=== PATIENT | male | born 1980 | race African-American/Black ===

== ENCOUNTER 2016-06-16 10:43 | Emergency (ER) | payer MEDICAID, OTHER ==
[~2016-06-16] VITALS: Ht 185.4 cm; Wt 94.5 kg
[~2016-06-16 10:43] MED LIST: PROZAC
[2016-06-16 10:47] VITALS: BP 140/79
== END 2016-06-16 12:19 | disposition left against medical advice (07) ==
LOC: EEVIPCON 10:44 → EMS 10:44
DX: F41.9 Anxiety disorder, unspecified (principal); F17.210 Nicotine dependence, cigarettes, uncomplicated; F12.90 Cannabis use, unspecified, uncomplicated
CPT/HCPCS: 99281